=== PATIENT | male | born 1935 | race Caucasian/White ===

== ENCOUNTER 2016-07-07 23:25 | Emergency (ER) | payer OTHER ==
--- NOTE | 2016-07-08 00:20 | DIAGNOSTIC IMAGING REPORT ---
PROCEDURE: CT HEAD WITHOUT CONTRAST INDICATION: TRAUMA/INJURY TECHNIQUE: Noncontrast axial images with sagittal and coronal reformations. COMPARISON: None. FINDINGS: Brain and ventricles are normal. No evidence of an acute process or hemorrhage. There are multiple lucencies in the calvarium. Carotid and vertebral vascular calcifications. Sinuses and mastoids are normal. IMPRESSION: 1. Multiple lucencies in the calvarium. Consider myeloma. 2. Otherwise negative head CT. No evidence of intracranial injury. 3. Findings discussed with Dr. Juliana Fernández (0010 hours). All CT scans at this facility use dose modulation, iterative reconstruction, and/or weight-based dosing when appropriate to reduce radiation dose to as low as reasonably achievable.
--- NOTE | 2016-07-08 00:57 | ED NURSING NOTES ---
Clinical Report - Nurses [facility] [address] [place] [address] 07/07/2016 23:26 Patient: BIRGIT BANKS TRIAGE Triage time 23:32 Jul 07 2016. Acuity: LEVEL 2. Chief Complaint: INJURY TO HEAD and (pt on coumadin for afib, had unwitnessed glf, lac to back of head, pt does not remember falling). Alert. SEPSIS SCREEN: Sepsis Screen: negative. Negative (no infection suspected/documented). --23:52 Steven Tripp R.N. 23:32 07/07/16. BP: 140/88. HR: 96. RR: 25. O2 saturation: 94% on nasal cannula at 2 liters/minute. Temp: 98.1 F. --23:52 Steven Tripp R.N. 23:32 07/08/16. ( "i'm not hurt, I'm not staying" upon presentation). --01:29 Steven Tripp R.N. 23:32 07/08/16. Pain level now 0/10. --01:29 Steven Tripp R.N. Weight: 60.3 kg stated. Height/Length: 67 inches Per Patient. BMI: 20.8. --23:46 Steven Tripp R.N. Medications Coumadin Oral (Tablet 5 mg), daily (dose per INR). --00:45 Steven Tripp R.N. ProAir HFA Inhalation. --00:45 Steven Tripp R.N. Famotidine Oral (pt does not know doses). --00:45 Steven Tripp R.N. Metoprolol Tartrate Oral 12.5 mg, daily. --00:46 Steven Tripp R.N. Spiriva HandiHaler Inhalation. --00:47 Steven Tripp R.N. Pravastatin Sodium Oral (pt does not know doses). --00:47 Steven Tripp R.N. Allergies None. --00:44 Steven Tripp R.N. Medication/allergy information source: the patient's spouse (spouse via phone and son at bedside). --23:52 Steven Tripp R.N. History Arrived by EMS, and (BLS). Historian: family (ems). This occurred just prior to arrival. He sustained a laceration from a fall. Mechanism of injury: fell (unknown). ( c/o pain to left rib cage, reports "it's been that way a long time"). Treatment JUNK REMOVAL SPECIALIST: None. See EMS report. PAST MEDICAL HX: Last tetanus: (last tdap 07/09/2011). SOCIAL HX: Smoker- current status unknown (reports 3-4 cigarettes daily). No alcohol use or drug use. No infectious disease exposure. ABUSE ASSESSMENT: No report of abuse. SELF HARM ASSESSMENT: A self harm assessment was performed. The patient answered "no" to the question "Have you recently felt down, depressed, or hopeless?", "Have you noticed less interest or pleasure in doing things?", "Do you have thoughts of harming or killing yourself?", "Are you here because you tried to hurt yourself?", "Have you ever tried to hurt yourself before today?", "Have you recently had thoughts about harming or killing others?" and "Do you have any dangerous items in your possession?". NUTRITIONAL RISK ASSESSMENT: The nutritional risk assessment revealed no deficiencies. FALL RISK ASSESSMENT: Fall risk assessment completed. Risk factors identified include patient age greater than 65 years, history of fall and impairment of mobility, sight and hearing. Fall interventions initiated. Side rails up x2. Brakes on Bed in low position. Patient visible from nurses' station and identified as a fall risk by ID band. Family at bedside. Call light in reach of patient and family. Instructed not to get up without assistance. FUNCTIONAL ASSESSMENT: Functional assessment performed: requires assistance with the activities of daily living; wears glasses; hard of hearing in both ears. LEARNING NEEDS ASSESSMENT: (pt adament "I am not staying" verbalized multiple times upon arrival and through triage). --23:52 Steven Tripp R.N. PROBLEMS: Hyperlipidemia. Hypertension. Atrial Fibrillation. --23:44 Steven Tripp R.N. COPD - Chronic Obstructive Pulmonary Disease. --23:51 Steven Tripp R.N. ADDITIONAL SURGERIES: Hernia Repair. --23:51 Steven Tripp R.N. Sinus Surgery. --00:48 Steven Tripp R.N. Interventions ID band on patient. To treatment room. --23:52 Steven Tripp R.N. ID band on patient. --01:29 Steven Tripp R.N. PHYSICAL ASSESSMENT HEENT: Head: laceration present (lac to back of head, no bleeding upon arrival). Head non-tender. Pupils equal, round and reactive to light. Ear within normal limits. Voice within normal limits. No swelling of head. No dental injury noted. RESPIRATORY: Mild respiratory distress. BACK: No neck or back tenderness. ROM normal to the neck and back. SKIN: Skin is warm and dry. --00:04 Steven Tripp R.N. NURSING PROGRESS NOTES 23:51 07/07/16. Reassurance given to the patient. Call light placed in reach. Side rails up x 2. Bed placed in lowest position. Brakes of bed on. Patient waiting for CT results. ( pt repeats "I'm not staying" per son pts father went in to hospital and never came back). --00:05 Steven Tripp R.N. Patient gowned. Reassurance given. Patient transported to CT by stretcher with O2. (00:02 Jul 08 2016). Two patient identifiers checked. Call light placed in reach. Side rails up x 2. Bed placed in lowest position. Brakes of bed on. --00:06 Steven Tripp R.N. 23:52 07/07/2016 Duoneb (Ipratropium-Albuterol) Neb TX 1 unit dose given. Given by the respiratory therapist. (given by RT). --00:07 Steven Tripp R.N. 00:13 07/08/2016 Ativan (LORazepam) PO 0.5 mg given. Allergies verified, confirmed 5 rights and sedative warning given to the patient and patient's family. --00:18 Steven Tripp R.N. Reassurance given. WOUND REPAIR: Wound repair performed by ED physician. The wound is located on the scalp. The wound is 1.25 in. The wound is linear. Preparation: with lidocaine. Wound cleansed per physician. Procedure: wound repaired. Call light placed in reach. Side rails up x 2. Bed placed in lowest position. Brakes of bed on. --00:42 Steven Tripp R.N. Reassurance given. Reassessment after medication administered (pt reports "that stuff worked great, what is it I want to tell my doctor" "I feel good" son remains at bedside for dispo to home, waiting paperwork). He is calm and has had no adverse reaction. Overall patient status is improved. Call light placed in reach. Side rails up x 2. Bed placed in lowest position. Brakes of bed on. Patient waiting for disposition. --01:12 Steven Tripp R.N. 01:09 07/08/16. BP: 140/88. HR: 87. RR: 22. O2 saturation: 94%. Temp: 98.3 F. Pain level now 0/10. --01:12 Steven Tripp R.N. DISPOSITION / DISCHARGE Departure time: :Jul 08 2016. Condition at departure: improved. ( pt with decrease in anxiety following meds). Teaching performed with the patient and family. Learning barriers note: phillip sierra instructions provided to son and pt. Discharge instructions provided and reviewed with the patient and family. Follow up contact number pcp for staple removal. Patient and family verbalized understanding. Written instructions provided in [place]. The patient was discharged by the physician. He was discharged home and accompanied by family. He left the Emergency Department in a wheelchair and via private vehicle. Family member driving. ( wound to back of head intact with corie, no bleeding, c/d/i. pt dc with son, provided w/c to lobby, vs utd, per son pt baseline mentation, acting appropriately.). --01:25 Steven Tripp R.N. Locked/Released at 07/08/2016 1:30 by Steven Tripp R.N.
--- NOTE | 2016-07-08 00:57 | ED ORDER SUMMARY ---
..... Patient: BIRGIT BANKS OrderSheet [facility] VisitID: [id number] [address] [place] [address] 81y, M Registration Date/Time: 07/07/2016 ORDER SHEET Weight: 60.3 kg (stated) Allergies: None GENERAL ORDERS: CT Head wo Cont Urgent (23:39 07/07/2016 Lanette MCDONALD) (Ack 23:40 IJurca ER Tech1) (23:55 KPage-Menan R.N.) MEDICATION ORDERS: DuoNeb Neb Tx 1 unit dose (NOW) (23:38 07/07/2016 Lanette MCDONALD) (0:07 KPaoliver-Menan R.N.) Ativan PO 0.5 mg (HIGH ALERT MEDICATION, NOW) (23:40 07/07/2016 Lanette MCDONALD) (0:18 KPaoliver-Menan R.N.) IV FLUIDS: ORDER SHEET NOTES: [Electronically signed by Steven Tripp R.N. (:07/08/2016)] [Electronically signed by Juliana Fernández MD (18:06 07/17/2016)] [Electronically locked/signed by Steven Tripp R.N. (07/08/2016)]
--- NOTE | 2016-07-08 00:57 | ED CLINICAL REPORT ---
Clinical Report - Physicians/Mid Levels [facility] [address] [place] [address] 07/07/2016 23:26 Patient: BIRGIT BANKS Time Seen: 2330. Arrived- By ambulance. Historian- patient, EMS personnel and family. HISTORY OF PRESENT ILLNESS Chief Complaint: FALL. Location of injuries- head. The injury occurred just prior to arrival. Occurred at home. Fell (ground level, mechanical). The patient complains of mild pain. The patient sustained a blow to the head. No neck pain, loss of consciousness or seizure. Not dazed. REVIEW OF SYSTEMS No numbness, dizziness, loss of vision, hearing loss or chest pain. No difficulty breathing, weakness, headache, nausea or abdominal pain. No laceration, fever, vomiting or urinary problems. The patient has no pain on weight bearing. All systems otherwise negative, except as recorded above. PAST HISTORY Problems: COPD - Chronic Obstructive Pulmonary Disease. Hyperlipidemia. Hypertension. Atrial Fibrillation. Additional Surgeries: Hernia Repair. Sinus Surgery. Medications: Pravastatin Sodium Oral (pt does not know doses). Spiriva HandiHaler Inhalation. Metoprolol Tartrate Oral 12.5 mg, daily. Famotidine Oral (pt does not know doses). ProAir HFA Inhalation. Coumadin Oral (Tablet 5 mg), daily (dose per INR). Allergies: None. SOCIAL HISTORY Smoker- current status unknown. No alcohol use or drug use. ADDITIONAL NOTES The nursing notes have been reviewed. PHYSICAL EXAM Vital Signs: 07/07/2016 23:32 BP: 140/88. HR: 96. RR: 25. O2 saturation: 94%. Temp: 98.1 F. Have been reviewed. Appearance: Alert. Oriented X3. (PT is mildly anxious, but otherwise in NAD.). Head: Head non-tender. Right parietal area: mild tenderness and subcutaneous 1.5 cm laceration of the upper posterior aspect of the right parietal area. No erythema, swelling, abrasion, ecchymosis or puncture wound. No foreign body or deformity. Eyes: Pupils equal, round and reactive to light. EOM intact. ENT: No dental injury. Neck: Painless ROM. Non-tender. CVS: Heart sounds normal. Pulses normal. Respiratory: Expiratory mild bilateral wheezes present. Chest nontender. Abdomen: No visible injury. Soft and nontender. Back: No tenderness. ROM normal. Skin: Skin warm and dry. Normal skin color. Normal skin turgor. Extremities: Normal inspection. Pelvis stable. Extremities atraumatic. No lower extremity edema. Neuro: No motor deficit. No sensory deficit. (Answers questions appropriately.). LABS, X-RAYS, AND EKG CT Head: No acute changes. No bony abnormalities, no hemorrhage, no intracranial mass, no midline shift and no hydrocephalus. There is atrophy is present. Head CT performed without contrast. The study was independently viewed by me, interpreted by the radiologist and contemporaneously by me and discussed with the radiologist. Prior studies were not available for comparison. Pulse Oximetry: 07/07/2016 23:32 O2 saturation: 94%. (FIO2 - room air). Interpretation: normal. PROGRESS AND PROCEDURES Course of Care: Pt was given a duoneb and Ativan, with improvement in sx. CT head was negative. CLINICAL IMPRESSION Minor closed head injury. Loss of consciousness for a few seconds. Single superficial laceration to the scalp.No foreign body present. INSTRUCTIONS Protect wound and keep wound area clean. (Do not rub, scrub or immerse the wound until the galileo are removed.). Change dressing daily. Apply bacitracin daily. Galileo should be removed in seven days. Warnings: GENERAL WARNINGS: Return or contact your physician immediately if your condition worsens or changes unexpectedly, if not improving as expected, or if other problems arise. Your Current Medications: CONTINUE TAKING THE FOLLOWING MEDICATIONS: Coumadin Oral : Tablet 5 mg, daily, dose per INR. Famotidine Oral : pt does not know doses. Metoprolol Tartrate Oral : 12.5 mg daily. Pravastatin Sodium Oral : pt does not know doses. ProAir HFA Inhalation. Spiriva HandiHaler Inhalation. Follow-up: Follow up with your doctor in seven days for staple removal. Understanding of the discharge instructions verbalized by patient and family. (Electronically signed by Juliana Fernández MD 07/17/2016 18:06)
--- NOTE | 2016-07-08 00:57 | ED ORDER SUMMARY ---
..... Patient: BIRGIT BANKS OrderSheet [facility] VisitID: [id number] [address] [place] [address] 81y, M Registration Date/Time: 07/07/2016 ORDER SHEET Weight: 60.3 kg (stated) Allergies: None GENERAL ORDERS: CT Head wo Cont Urgent (23:39 07/07/2016 Lanette MCDONALD) (Ack 23:40 IJurca ER Tech1) (23:55 KPage-Menan R.N.) MEDICATION ORDERS: DuoNeb Neb Tx 1 unit dose (NOW) (23:38 07/07/2016 Lanette MCDONALD) (0:07 KPaoliver-Menan R.N.) Ativan PO 0.5 mg (HIGH ALERT MEDICATION, NOW) (23:40 07/07/2016 Lanette MCDONALD) (0:18 KPaoliver-Menan R.N.) IV FLUIDS: ORDER SHEET NOTES: [Electronically signed by Steven Tripp R.N. (:07/08/2016)] [Electronically signed by Juliana Fernández MD (18:06 07/17/2016)] [Electronically locked/signed by Steven Tripp R.N. (07/08/2016)]
--- NOTE | 2016-07-17 18:06 | ED MED RECONCILIATION SUMMARY ---
Patient: BIRGIT BANKS Medication Reconciliation Report [facility] VisitID: [id number] [address] [place] [address] 81y, M Registration Date/Time: 07/07/2016 Weight: 60.3 kg Height/Length: 67 in. BMI: 20.8 ALLERGIES: None The patient's Home Medications are listed below: CONTINUE TAKING THE FOLLOWING MEDICATIONS: Coumadin Oral (5 mg), daily, dose per INR Famotidine Oral, pt does not know doses Metoprolol Tartrate Oral 12.5 mg, daily Pravastatin Sodium Oral, pt does not know doses ProAir HFA Inhalation Spiriva HandiHaler Inhalation The source(s) of the original Home Medication information: patient's spouse spouse via phone and son at bedside The following Medications were given to the patient in the Emergency Department: Duoneb [Neb Tx] Neb TX 1 unit dose, administered: 07/07/2016 11:52:00 PM Ativan [PO] PO 0.5 mg, administered: 07/08/2016 12:13:00 AM The following Medications were prescribed to the patient: None.
--- NOTE | 2016-07-17 18:06 | ED MED RECONCILIATION SUMMARY ---
Patient: BIRGIT BANKS Medication Reconciliation Report [facility] VisitID: [id number] [address] [place] [address] 81y, M Registration Date/Time: 07/07/2016 Weight: 60.3 kg Height/Length: 67 in. BMI: 20.8 ALLERGIES: None The patient's Home Medications are listed below: CONTINUE TAKING THE FOLLOWING MEDICATIONS: Coumadin Oral (5 mg), daily, dose per INR Famotidine Oral, pt does not know doses Metoprolol Tartrate Oral 12.5 mg, daily Pravastatin Sodium Oral, pt does not know doses ProAir HFA Inhalation Spiriva HandiHaler Inhalation The source(s) of the original Home Medication information: patient's spouse spouse via phone and son at bedside The following Medications were given to the patient in the Emergency Department: Duoneb [Neb Tx] Neb TX 1 unit dose, administered: 07/07/2016 11:52:00 PM Ativan [PO] PO 0.5 mg, administered: 07/08/2016 12:13:00 AM The following Medications were prescribed to the patient: None.
--- NOTE | 2016-07-17 18:06 | ED DISCHARGE INSTRUCTIONS ---
Patient: BIRGIT BANKS General Instructions [facility] VisitID: [id number] [place] [address] 81y, M Registration Date/Time: 07/07/2016 Minor closed head injury. Loss of consciousness for a few seconds. Single superficial laceration to the scalp.No foreign body present. INSTRUCTIONS Protect wound and keep wound area clean. (Do not rub, scrub or immerse the wound until the galileo are removed.). Change dressing daily. Apply bacitracin daily. Galileo should be removed in seven days. Warnings: GENERAL WARNINGS: Return or contact your physician immediately if your condition worsens or changes unexpectedly, if not improving as expected, or if other problems arise. Your Current Medications: CONTINUE TAKING THE FOLLOWING MEDICATIONS: Coumadin Oral : Tablet 5 mg, daily, dose per INR. Famotidine Oral : pt does not know doses. Metoprolol Tartrate Oral : 12.5 mg daily. Pravastatin Sodium Oral : pt does not know doses. ProAir HFA Inhalation. Spiriva HandiHaler Inhalation. Follow-up: Follow up with your doctor in seven days for staple removal. Understanding of the discharge instructions verbalized by patient and family. ADDITIONAL INFORMATION Laceration, Scalp (Sutures Or [place]) A laceration is a cut through the skin. This will require stitches (sutures) or galileo if it is deep. Home care The following guidelines will help you care for your laceration at home: During the first two days you may carefully rinse your hair in the shower to remove blood, glass or dirt particles. After two days you may shower and shampoo your hair normally. Have someone help you clean your wound every day: In the shower, wash the area with soap and water. Use a wet cotton swab to loosen and remove any blood or crust that forms. After cleaning, keep the wound clean and dry. Talk with your doctor before applying any antibiotic ointment to the wound. Reapply a fresh bandage. Do not put your head under water (no swimming) until the stitches or galileo have been removed. The doctor may prescribe an antibiotic cream or ointment to prevent infection. Do not stop taking this medication until you have finished the prescribed course or the doctor tells you to stop. The doctor may also prescribe medications for pain. Follow the doctors instructions for taking these medications. If you have chronic liver or kidney disease or ever had a stomach ulcer or GI bleeding, talk with your doctor before using these medicines. Follow-up care Follow up with your health care provider. Most scalp wounds heal within seven days. However, an infection can sometimes occur. Check the wound daily for the warning signs listed below. Stitches or galileo should be removed from the scalp in about 57 days. When to seek medical care Get prompt medical attention if any of these occur: Increasing pain in the wound Redness, swelling, or pus coming from the wound Fever of 100.4F (38C) or higher, or as directed by your health care provider If stitches or galileo come apart or fall out before your next appointment If the wound edges re-open Bleeding not controlled by direct pressure Head Injury, No Wake-Up (Adult) You have had a head injury. It does not appear serious at this time. Symptoms of a more serious problem (concussion, bruising, or bleeding in the brain) may appear later. Therefore, watch for the WARNING SIGNS listed below. Home Care: Your healthcare provider will tell you whether its okay to drive. If so, you can drive yourself home. For the next day or so, be careful when driving or using heavy machinery until you are sure you have no delayed symptoms. During the next 24 hours someone must stay with you to check for the signs below. It is not necessary to stay awake or be awakened during the night. If you have swelling of the face or scalp, apply an ice pack (ice cubes in a plastic bag, wrapped in a towel) for 20 minutes. Do this every 1-2 hours until the swelling starts to go down. Do not use aspirin or ibuprofen (Motrin, Advil) after a head injury.You may use acetaminophen (Tylenol)to control pain, unless another pain medicine was prescribed. [NOTE: If you have chronic liver or kidney disease or ever had a stomach ulcer or GI bleeding, talk with your doctor before using these medicines.] For the next 24 hours: Do not take alcohol, sedatives or medicines that make you sleepy. Avoid strenuous activities. No lifting or straining. If you have had any symptoms of a concussion today (nausea, vomiting, dizziness, confusion, headache, memory loss or if you were knocked out), do not return to sports or any activity that could result in another head injury until all symptoms are gone and you have been cleared by your doctor. A second head injury before fully recovering from the first one can lead to serious brain injury. Follow Up with your doctor if symptoms are not improving after 24 hours, or as directed. [NOTE: A radiologist will review any X-rays or CT scans that were taken. We will notify you of any new findings that may affect your care.] Get Prompt Medical Attention if any of the followingWARNING SIGNS occur: Repeated vomiting Severe or worsening headache or dizziness Unusual drowsiness, or unable to awaken as usual Confusion or change in behavior or speech, memory loss, blurred vision Convulsion (seizure) Increasing scalp or face swelling Redness, warmth or pus from the swollen area Fluid drainage or bleeding from the nose or ears You have been given the following additional information: Laceration, Scalp HEAD INJURY, No Wake-Up (Adult) (Electronically signed by Juliana Fernández MD 07/17/2016 18:06)
--- NOTE | 2016-07-17 18:06 | ED MAR SUMMARY ---
..... Medication Administration Record [facility] [address] [place] [address] Patient: BIRGIT BANKS Visit ID: [id number] 81y, M Weight: 60.3 kg Height/Length: 67 in BMI: 20.8 ALLERGIES: None Given 23:52 07/07/2016 Steven Tripp RYuliana Medication Administered: DUONEB [NEB TX] (IPRATROPIUM-ALBUTEROL), Dose: 1 unit dose Neb TX. Medication Ordered: DuoNeb Neb Tx 1 unit dose (NOW). Given 00:13 07/08/2016 Steven Tripp, RYuliana Medication Administered: ATIVAN [PO] (LORAZEPAM), Dose: 0.5 mg PO. Medication Ordered: Ativan PO 0.5 mg (HIGH ALERT MEDICATION, NOW).
--- NOTE | 2016-07-17 18:06 | ED MAR SUMMARY ---
..... Medication Administration Record [facility] [address] [place] [address] Patient: BIRGIT BANKS Visit ID: [id number] 81y, M Weight: 60.3 kg Height/Length: 67 in BMI: 20.8 ALLERGIES: None Given 23:52 07/07/2016 Steven Tripp RYuliana Medication Administered: DUONEB [NEB TX] (IPRATROPIUM-ALBUTEROL), Dose: 1 unit dose Neb TX. Medication Ordered: DuoNeb Neb Tx 1 unit dose (NOW). Given 00:13 07/08/2016 Steven Tripp, RYuliana Medication Administered: ATIVAN [PO] (LORAZEPAM), Dose: 0.5 mg PO. Medication Ordered: Ativan PO 0.5 mg (HIGH ALERT MEDICATION, NOW).
== END 2016-07-08 01:24 | disposition home or self-care (01) ==
LOC: ED SRH 23:25
DX: S01.01XA Laceration without foreign body of scalp, initial encounter (principal); S06.9X1A Unspecified intracranial injury with loss of consciousness of 30 minutes or less, initial encounter; I10 Essential (primary) hypertension; W18.30XA Fall on same level, unspecified, initial encounter; Y93.9 Activity, unspecified; Y99.9 Unspecified external cause status; Y92.009 Unspecified place in unspecified non-institutional (private) residence as the place of occurrence of the external cause; E78.5 Hyperlipidemia, unspecified; Z79.01 Long term (current) use of anticoagulants; Z79.899 Other long term (current) drug therapy
CPT/HCPCS: 81663